=== PATIENT | female | born 1975 | race African-American/Black ===

== ENCOUNTER 2019-11-11 14:30 | Emergency (ER) | payer BC ==
[2019-11-11] MEDS ORDERED: DIPHTH,PERTUSS(ACELL),TET 0.5 ML DISP.SYRIN IM ONE (14:34)
[2019-11-11 14:54] VITALS: BP 126/58; PULSE 78; TEMP 98.6; BMI 26.6
[2019-11-11] MEDS ORDERED: IBUPROFEN 600 MG TABLET (FP) PO ONE ×2 (15:53→16:01)
== END 2019-11-11 16:06 | disposition home or self-care (01) ==
LOC: JERFT 14:30 → JER 14:30 → JERFT 16:06
PROC: 0HQFXZZ Repair Right Hand Skin, External Approach (ICD-10-PCS; principal; 2019-11-11)
PROC: 3E0234Z Introduction of Serum, Toxoid and Vaccine into Muscle, Percutaneous Approach (ICD-10-PCS; 2019-11-11)
DX: S61.211A Laceration without foreign body of left index finger without damage to nail, initial encounter (principal)
CPT/HCPCS: 90715; 99284-25

== ENCOUNTER 2020-10-10 01:15 | Emergency (ER) | payer BC ==
[2020-10-10] MEDS ORDERED: ACETAMINOPHEN 325 MG TABLET (FP) PO ONE (01:49)
[2020-10-10] MEDS ORDERED: ACETAMINOPHEN 325 MG TABLET (FP) ONE (01:51)
[2020-10-10] MEDS ORDERED: ACETAMINOPHEN WITH CODEINE 300MG/30MG TABLET PO ONE (02:15)
[2020-10-10 02:16] VITALS: TEMP 98.1; BMI 26.9
[2020-10-10] MEDS ORDERED: ACETAMINOPHEN WITH CODEINE 300MG/30MG TABLET ONE (02:36)
[2020-10-10 02:53] LABS: PH,URINE 5.5 (5.0-8.0); URINE APPEARANCE CLOUDY; URINE BILIRUBIN NEGATIVE (NEGATIVE); URINE COLOR YELLOW; URINE GLUCOSE (UA) NEGATIVE (NEGATIVE); URINE KETONE NEGATIVE (NEGATIVE); URINE LEUK ESTERASE NEGATIVE (NEGATIVE); URINE NITRITE NEGATIVE (NEGATIVE); URINE PROTEIN NEGATIVE (NEGATIVE); URINE UROBILINOGEN 0.2 mg/dL (0.2-1.0)
[2020-10-10] MEDS ORDERED: KETOROLAC TROMETHAMINE 30 MG/1 ML VIAL IM ONE (03:40)
[2020-10-10] MEDS ORDERED: KETOROLAC TROMETHAMINE 30 MG/1 ML VIAL ONE (03:45)
[2020-10-10 06:09] VITALS: BP 130/94; PULSE 62
== END 2020-10-10 06:09 | disposition home or self-care (01) ==
LOC: JER 01:15
PROC: 3E0233Z Introduction of Anti-inflammatory into Muscle, Percutaneous Approach (ICD-10-PCS; principal; 2020-10-10)
DX: R20.2 Paresthesia of skin (principal)
CPT/HCPCS: 81003; 82962; 84703; 87086; 99284-25